=== PATIENT | female | born 1985 | race Two or more races ===

== ENCOUNTER 2024-11-14 13:58 | Emergency (ER) | payer MEDICAID, OTHER ==
[~2024-11-14] VITALS: Ht 162.6 cm; Wt 74.0 kg
[2024-11-14 14:31] VITALS: O2SAT 99
[2024-11-14 15:00] VITALS: BP 119/78; PULSE 100; RESP 18; TEMP 36.8; O2SAT 100
[2024-11-14 15:27] LABS: BASOPHILS % 0.5 % (0.0-2.0); EOSINOPHILS % 0.6 % (0.0-5.0); HEMATOCRIT. 32.9 % (36.0-48.0); HEMOGLOBIN. 11.0 g/dL (12.0-16.0); LYMPHOCYTES % 15.2 % (20.0-50.0); MEAN PLATELET VOLUME 8.3 fl (7.4-10.4); MONOCYTES % 5.2 % (2.0-8.0); NEUTROPHILS % 78.5 % (40.0-76.0); PLATELET 435 x1000/uL (130-400); RED BLOOD CELL COUNT 4.28 mill/uL (4.2-5.4); RED CELL DISTRIBUTION WIDTH 15.2 % (11.6-14.6)
[2024-11-14 15:37] LABS: INR 0.9
[2024-11-14 15:46] LABS: UREA NITROGEN BLOOD 6 mg/dL (9-23)
[2024-11-14 15:47] LABS: CREATININE 0.6 mg/dL (0.6-1.0); ETHANOL BLOOD < 10 mg/dL (<10)
[2024-11-14 15:49] LABS: ASPARTATE AMINOTRANSFERASE 21 IU/L (<34); BILIRUBIN DIRECT 0.2 mg/dL (<=3.0); BILIRUBIN TOTAL 0.6 mg/dL (0.1-1.0); PROTEIN TOTAL 6.6 g/dL (6.0-8.3)
[2024-11-14 16:03] LABS: HCG SCREEN POSITIVE
[2024-11-14 16:12] LABS: B-HCG QUANTITATIVE 68998 mIU/mL (<6)
[2024-11-17 04:11] LABS: HSV TYPE 2 SPECIFIC AB IGG Reactive (Non Reactive)
== END 2024-11-14 15:26 | disposition short-term general hospital (02) ==
LOC: ER 14:07
DX: O26.892 Other specified pregnancy related conditions, second trimester (principal); R10.2 Pelvic and perineal pain; Z79.899 Other long term (current) drug therapy; Z3A.20 20 weeks gestation of pregnancy
CPT/HCPCS: 36415; 76805; 80048; 80076; 80320; 83735; 84702; 84703; 85025; 86592; 86593; 86695; 86696; 86850; 86900; 87340; 99291; G0480